=== PATIENT | female | born 1950 | race African-American/Black ===

== ENCOUNTER 2025-01-03 09:18 | Emergency (ER) | payer MEDICARE, OTHER ==
[~2025-01-03] VITALS: Ht 172.7 cm; Wt 118.0 kg
[2025-01-03 09:20] VITALS: O2SAT 98
[2025-01-03] MEDS: ACETAMINOPHEN 325MG TABLET PO ONE (10:27)
[2025-01-03] MEDS: CLONIDINE 0.1MG TABLET PO ONE (10:28)
[2025-01-03] MEDS ORDERED: ACET-2708 MT (10:50)
[2025-01-03] MEDS ORDERED: IBUP-2028 MT (10:50)
[2025-01-03] MEDS: IBUPROFEN 400MG TABLET PO ONE (11:20)
[2025-01-03 11:44] VITALS: BP 109/79; PULSE 82; RESP 16; TEMP 36.8; O2SAT 95
== END 2025-01-03 11:49 | disposition home or self-care (01) ==
LOC: ER 09:18
DX: S82.441A Displaced spiral fracture of shaft of right fibula, initial encounter for closed fracture (principal); E11.9 Type 2 diabetes mellitus without complications; I10 Essential (primary) hypertension; X58.XXXA Exposure to other specified factors, initial encounter; Y93.89 Activity, other specified; Y92.89 Other specified places as the place of occurrence of the external cause; Y99.8 Other external cause status
CPT/HCPCS: 73610; 73630; 99284